=== PATIENT | female | born 1965 | race Caucasian/White ===

== ENCOUNTER → 2018-01-16 09:49 | Outpatient (CLI) | payer MEDICAID, SELFPAY ==
--- NOTE | 2018-01-16 10:04 | XR_ITS ---
XR ankle RT min 3V HISTORY: ITS.REASON: RT ANKLE PAIN ORDERING PHYSICIAN: Bev Rodriges PATIENT AGE: 52 years Comparison: None FINDINGS: No fracture or dislocation. No lytic or blastic change. There is normal mineralization.. The joint spaces are well-preserved. No significant degenerative/arthritic changes. No erosive changes evident. IMPRESSION: Negative ankle, no acute finding
== END ==
PROVIDERS: PCP Nurse Practitioner; Visit Provider Nurse Practitioner
DX: M25.571 Pain in right ankle and joints of right foot (principal)
CPT/HCPCS: 73610

== ENCOUNTER → 2020-09-11 15:45 | Outpatient (CLI) | payer OTHER, SELFPAY ==
--- NOTE | 2020-09-11 15:52 | XR_ITS ---
PROCEDURE: XR CERVICAL SPINE 5V CLINICAL INDICATION: DEGENERATIVE DISC DISEASE,CERVICAL, PROTRUSION OF CI DISC COMPARISON: No exams were available for comparison FINDINGS: There is straightening of the cervical lordosis. Degenerative disc disease is present at C5-C6 with mild retrolisthesis of C5 by approximately 3 mm. No acute fracture or dislocation. There is mild foraminal narrowing on the left at C5-C6. No lytic or blastic change. Other findings:None. IMPRESSION: Degenerative disc disease at C5-C6 with mild left-sided foraminal narrowing at that level. Straightening of cervical lordosis which may be due to patient positioning or muscle spasm. Dictated by: Matthew Pope MD 09/11/2020 16:58 Matthew Pope MD in [facility] 09/11/2020 16:58
== END ==
PROVIDERS: PCP Family Medicine; Visit Provider Nurse Practitioner Family
DX: M50.30 Other cervical disc degeneration, unspecified cervical region (principal); M60.20 Foreign body granuloma of soft tissue, not elsewhere classified, unspecified site
CPT/HCPCS: 72050

== ENCOUNTER → 2020-10-03 13:39 | Outpatient (CLI) | payer OTHER, SELFPAY ==
--- NOTE | 2020-10-03 13:41 | CT_ITS ---
PROCEDURE: CT CERVICAL SPINE WO CON CLINICAL INDICATION: DDD,PROTRUSION OF CERVICAL DISC COMPARISON: No exams were available for comparison TECHNIQUE: Axial images obtained with sagittal and coronal reformats. All CT scans at the facility use one or more dose reduction, viz: automated exposure control, ma/kV adjustment per patient size (including targeted exams where dose is matched to indication, i.e. head), or iterative reconstruction technique. Axial spiral CT scanning performed of the cervical spine beginning at the base of the skull and continuing to the upper T-spine. 3-D multiplanar reconstruction with 3-D manipulation of volumetric data set in image rendering was completed by the radiologist and/or technologist with the supervision of the radiologist on independent workstation. FINDINGS: No fracture nor subluxation is evident. Normal prevertebral soft tissues. Minor degenerative changes with endplate sclerosis and loss of disc height is noted at C5-6 level. Bilateral uncovertebral hypertrophic changes are noted at this level. There is moderate to severe bony foraminal narrowing is noted, predominantly on the left. Otherwise the facets, neural foramen and vertebral bodies intact and unremarkable. Normal C1/C2 relationships. Apices of lungs are clear with no acute findings. Prevertebral soft tissues are unremarkable. The visualized thyroid gland is unremarkable. IMPRESSION: No acute fractures or traumatic subluxation. Degenerative changes at C5-6 with uncovertebral hypertrophy, causes moderate to severe bilateral foraminal narrowing at this level. Dictated by: Judit Alfaro 10/04/2020 09:58 Judit Alfaro in [facility] 10/04/2020 09:58
== END ==
PROVIDERS: PCP Family Medicine; Visit Provider Nurse Practitioner Family
DX: M50.30 Other cervical disc degeneration, unspecified cervical region (principal); M50.20 Other cervical disc displacement, unspecified cervical region
CPT/HCPCS: 72125

== ENCOUNTER → 2020-10-05 15:43 | Outpatient (CLI) | payer OTHER, SELFPAY ==
--- NOTE | 2020-10-05 | XR_ITS ---
PROCEDURE: XR SHOULDER RT MIN 2V CLINICAL INDICATION: PAIN OF RT SHOULDER COMPARISON: No exams were available for comparison FINDINGS: The bony structures are intact, well-aligned, and normally mineralized. The joint spaces are preserved. No soft tissue calcifications are noted. The visualized right hemithorax is unremarkable. Other findings:None. IMPRESSION: No acute findings. Dictated by: Judit Alfaro 10/05/2020 16:34 Judit Alfaro in [facility] 10/05/2020 16:34
--- NOTE | 2020-10-05 | XR_ITS ---
PROCEDURE: XR HIP RT 2-3V W/PELVIS CLINICAL INDICATION: RIGHT HIP PAIN COMPARISON: CR HIP2R HIP-2 VIEWS-RT from 10/20/2014 FINDINGS: The bony structures are intact, well-aligned, and normally mineralized. The joint spaces are preserved. The visualized lumbar spine and bilateral sacroiliac joints are unremarkable. No soft tissue abnormality is noted. IMPRESSION: No acute findings. Dictated by: Judit Alfaro 10/05/2020 16:35 Judit Alfaro in [facility] 10/05/2020 16:35
--- NOTE | 2020-10-05 | XR_ITS ---
PROCEDURE: XR MULTIPLE SPINE 6+V CLINICAL INDICATION: PAIN IN THORACIC SPINE, LOW BACK PAIN COMPARISON: No exams were available for comparison FINDINGS: No acute fractures or traumatic subluxation. Bone density is normal. Minor degenerative changes with anterior osteophyte formation and facet joint arthropathy is noted. Paravertebral soft tissues are unremarkable. IMPRESSION: No acute fractures or traumatic subluxation. Dictated by: Judit Alfaro 10/05/2020 16:36 Judit Alfaro in [facility] 10/05/2020 16:36
== END ==
PROVIDERS: PCP Nurse Practitioner Family; Visit Provider Nurse Practitioner Family
DX: M25.511 Pain in right shoulder (principal); M54.6 Pain in thoracic spine; M54.5 Low back pain; M25.551 Pain in right hip
CPT/HCPCS: 72084; 73030; 73502

== ENCOUNTER → 2021-08-15 16:13 | Outpatient (CLI) | payer OTHER, SELFPAY ==
--- NOTE | 2021-08-15 16:19 | XR_ITS ---
PROCEDURE INFORMATION: Exam: XR Lumbosacral Spine Exam date and time: 08/15/2021 4:24 PM Age: 55 years old Clinical indication: Low back pain and sciatica; Right; Additional info: Low back pain w/ sciatica, sciatica RT laterality unspecified TECHNIQUE: Imaging protocol: XR of the lumbosacral spine. Views: 4 or 5 views. COMPARISON: CR XR MULTIPLE SPINE 6+V 10/05/2020 3:51 PM FINDINGS: Bones/joints: There is no evidence of acute fracture.There is no evidence of malalignment or dislocation. Mild intervertebral disc space narrowing at L1/L2 may represent degenerative disc disease. Soft tissues: Unremarkable. IMPRESSION: 1. There is no evidence of acute fracture.There is no evidence of malalignment or dislocation. 2. Mild intervertebral disc space narrowing at L1/L2 may represent degenerative disc disease.
== END ==
PROVIDERS: PCP Nurse Practitioner Family; Visit Provider Family Medicine
DX: M54.40 Lumbago with sciatica, unspecified side (principal)
CPT/HCPCS: 72110